=== PATIENT | female | born 1950 | race American Indian/Alaskan Native ===

== ENCOUNTER 2017-03-26 15:35 | Outpatient (CLI) | payer MEDICARE ==
--- NOTE | 2017-03-26 16:13 | XRay Report ---
XRAY RIGHT KNEE 4 THREE VIEWS: 03/26/17 CLINICAL: Right knee pain. FINDINGS: Moderate diffuse osteopenia. 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 No apparent loosening.Suspect a tiny joint effusion.Mild infrapatellar soft tissue edema. IMPRESSION: Suspect a tiny joint effusion. Mild nonspecific soft tissue edema status post total joint replacement.
== END 2017-03-26 15:36 | disposition home or self-care (01) ==
LOC: SPVIMAG 15:35
PROVIDERS: ATTEND Orthopaedic Surgery Sports Medicine
DX: M85.861 Other specified disorders of bone density and structure, right lower leg (principal); E11.9 Type 2 diabetes mellitus without complications; D64.9 Anemia, unspecified; Z96.651 Presence of right artificial knee joint; Z87.891 Personal history of nicotine dependence